=== PATIENT | female | born 1975 | race American Indian/Alaskan Native ===

== ENCOUNTER 2017-01-20 09:24 | Emergency (ER) | payer SELFPAY ==
--- NOTE | 2017-01-20 14:28 | Emergency Department Report ---
ED Extremity Problem HPI - General Chief complaint: Extremity Injury, Lower Stated complaint: RT ANKLE/FOOT SWELLING Time Seen by Provider: 01/20/17 13:43 Source: patient, family Mode of arrival: Ambulatory Limitations: No Limitations - History of Present Illness Initial comments: Patient here brought in by [id number] reported that she was recently return to work on 12/23/2016 status post right ankle fracture from 2015. She says she's been going to orthopedic doctor in the cab and also doing physical therapy. She says she had to wear a boot for 5 weeks. She is complaining of pain to her right ankle radiating up to her right lower leg. She is also complaining that she is on control and her right leg seemed to be more swollen down her left leg.. She said her orthopedic doctor put her on prednisone for a day and stop working. She says she was placed on meloxicam but she still having pain. She says she works for [employer] and the report that she is slow and she cannot performed due to chronic ankle pain. She said her primary care doctor referred her to resuscitation where she will have an appointment on February 03. Also reported that she has an appointment with her orthopedic doctor on January 27, 2017. She said her orthopedic doctor has not ordered an MRI and she thinks she needs MRI done. She said her pain is 10 out of 10 and describes it is aching to her right ankle. MD Complaint: extremity pain, joint swelling, joint paint -: month(s) Location: right, knee History of Same: Yes -: No myalgia, Yes arthralgia, No fever, No associated dyspnea, No associated chest pain Radiation: proximal Severity scale (0 -10): 10 Quality: aching Consistency: intermittent Improves with: immobilization, rest Worsens with: weight bearing, walking Associated Symptoms: arthralgias. denies: chest pain, shortness of breath, fever, myalgias, rash - Related Data Previous Rx's Medication Instructions Recorded Last Taken Type HYDROcodone/APAP 5-325 [[place] 1 each PO Q6HR PRN #16 tablet 01/20/17 Unknown Rx 5/325] Allergies Allergy/AdvReac Type Severity Reaction Status Date / Time aspirin AdvReac NOSEBLEED Verified 01/20/17 10:38 ibuprofen AdvReac STOMACH Verified 01/20/17 10:38 IRRITATION ED Review of Systems ROS: Stated complaint: RT ANKLE/FOOT SWELLING Other details as noted in HPI Comment: All other systems reviewed and negative Constitutional: denies: chills, fever Respiratory: no symptoms reported Cardiovascular: denies: chest pain, palpitations, edema, syncope Gastrointestinal: denies: abdominal pain, nausea, vomiting Musculoskeletal: arthralgia. denies: back pain, myalgia Skin: denies: rash Neurological: abnormal gait (due to chronic right ankle pain). denies: headache , numbness, paresthesias, confusion, vertigo ED Past Medical Hx - Past Medical History Previous Medical History?: Yes Hx GERD: Yes Additional medical history: CHRONIC BACK PAIN. DEVIATED SEPTUM - Surgical History Past Surgical History?: Yes Hx Cholecystectomy: Yes Additional Surgical History: CYST REMOVED LEFT SHOULDER - Family History Family history: hypertension - Social History Smoking Status: Current Every Day Smoker Substance Use Type: Alcohol, Prescribed - Medications Home Medications: Home Medications Medication Instructions Recorded Confirmed Last Taken Type HYDROcodone/APAP 5-325 [[place] 1 each PO Q6HR PRN #16 tablet 01/20/17 Unknown Rx 5/325] ED Physical Exam - General Limitations: No Limitations General appearance: alert, in no apparent distress - Head Head exam: Present: atraumatic, normocephalic, normal inspection - Eye Eye exam: Present: normal appearance, PERRL, EOMI Pupils: Present: normal accommodation - Neck Neck exam: Present: normal inspection, full ROM. Absent: tenderness, meningismus, lymphadenopathy - Respiratory Respiratory exam: Present: normal lung sounds bilaterally. Absent: respiratory distress, chest wall tenderness - Cardiovascular Cardiovascular Exam: Present: regular rate, normal rhythm, normal heart sounds - GI/Abdominal GI/Abdominal exam: Present: soft, normal bowel sounds. Absent: distended, tenderness, guarding, rebound, rigid - Extremities Exam Extremities exam: Present: normal inspection, full ROM, normal capillary refill. Absent: tenderness, pedal edema, calf tenderness - Expanded Lower Extremity Exam Right Hip exam: Present: normal inspection, full ROM, pelvic stability. Absent: tenderness, swelling, abrasion, laceration, ecchymosis, deformity, crepidus, dislocation, erythema, external rotation, internal rotation, shortening Upper Leg exam: Present: normal inspection, full ROM. Absent: tenderness, swelling, abrasion, laceration, ecchymosis, deformity, crepidus, dislocation, erythema Knee exam: Present: normal inspection, full ROM, full knee extension. Absent: tenderness, swelling, abrasion, laceration, ecchymosis, deformity, crepidus, dislocation, erythema, effusion, pain w/ pronation/supination, posterior draw sign, pain/laxity with valgus, pain/laxity with varus Lower Leg exam: Present: tenderness (tender to palpate bilateral mid leg. No erythema or tenderness to calf.), swelling. Absent: full ROM (noted patient will to right lower extremity.), laceration, ecchymosis, deformity, crepidus, dislocation, erythema, palpable cord, Bala's sign Ankle exam: Present: normal inspection. Absent: full ROM (pain with dorsiflexion to her right ankle), tenderness, swelling, abrasion, laceration, ecchymosis, deformity, crepidus, dislocation, erythema Foot/Toe exam: Present: normal inspection, full ROM. Absent: tenderness, swelling, abrasion, laceration, ecchymosis, deformity, crepidus, dislocation, erythema, amputation, puncture wound, foreign body, calcaneal tenderness, tenderness at base of 5th metatarsal, nail avulsion, subungual hematoma Neuro vascular tendon exam: Present: no vascular compromise, significant pain with passive ROM of distal joint. Absent: pulse deficit, abnormal cap refill, motor deficit, sensory deficit, tendon deficit, extremity cold to touch, pallor , abnormal 2-point discrimination, decreased fine/light touch, foot drop, peroneal nerve deficit Gait: Positive: observed and limited by pain - Back Exam Back exam: Present: normal inspection, full ROM - Neurological Exam Neurological exam: Present: alert, oriented X3, reflexes normal. Absent: abnormal gait (she is limping to right lower extremity due to ankle pain), motor sensory deficit - Psychiatric Psychiatric exam: Present: normal affect, normal mood - Skin Skin exam: Present: warm, dry, intact, normal color. Absent: rash ED Course Vital Signs 01/20/17 01/20/17 01/20/17 10:32 13:40 16:06 Temperature 98.8 F 98.7 F Pulse Rate 82 82 62 Respiratory 19 18 14 Rate Blood Pressure 138/94 Blood Pressure 152/120 129/84 [Left] O2 Sat by Pulse 98 99 100 Oximetry - Reevaluation(s) Reevaluation #1: 01/20/17 15:47 Patient given [place] 5/325 mg 2 tablets in emergency room for right ankle pain. ED Medical Decision Making - Radiology Data Radiology results: report reviewed Venous Doppler of right lower extremity reveals no evidence of DVT or SVT). - Medical Decision Making ED course: Discussed with patient that she will need to follow-up with orthopedic doctor regarding her chronic pain. I also discussed with her that her ultrasound revealed that she has no blood clots. I also discussed with her that her radiating pain could be from nerve injury and she will need to follow- up with orthopedic doctor and possibly get an MRI done. Told her to keep her appointment with her orthopedic doctor and if she is not satisfied then she should follow up with [facility]. She was given [place] 5/325 mg 2 tablets by mouth in emergency room for pain which relieved her pain. Discharged home with L[place] 5/325 2 tablets and to follow-up with orthopedic doctor. Critical care attestation.: If time is entered above; I have spent that time in minutes in the direct care of this critically ill patient, excluding procedure time. ED Disposition Clinical Impression: Arthralgia of ankle, right Disposition: DISCHARGED TO HOME OR SELFCARE Is pt being admited?: No Does the pt Need Aspirin: No Condition: Stable Instructions: Arthralgia (ED), Ankle Exercises (GEN) Prescriptions: HYDROcodone/APAP 5-325 [[place] 5/325] 1 each PO Q6HR PRN #16 tablet PRN Reason: Pain Referrals: PRIMARY CARE, [Primary Care Provider] - 2-3 Days Your, Orthopedic Doctor [Other] - 3-5 Days Forms: Accompanied Note, Work/School Release Form(ED)
[2017-01-20] MEDS ORDERED: NORCO 5/325 PO ONE (14:32)
[2017-01-20 16:07] VITALS: BP 129/84
== END 2017-01-20 16:07 | disposition home or self-care (01) ==
LOC: ED 09:24
DX: M25.571 Pain in right ankle and joints of right foot (principal); K21.9 Gastro-esophageal reflux disease without esophagitis; G89.29 Other chronic pain; F17.200 Nicotine dependence, unspecified, uncomplicated; Z90.49 Acquired absence of other specified parts of digestive tract

== ENCOUNTER 2017-04-19 08:25 | Emergency (ER) | payer BC, MEDICARE | END 2017-04-19 08:26 | disposition left against medical advice (07) | LOC: ED 08:25 | DX: Z76.0 Encounter for issue of repeat prescription (principal); Z53.21 Procedure and treatment not carried out due to patient leaving prior to being seen by health care provider ==

== ENCOUNTER 2018-12-24 13:59 | Emergency (ER) | payer OTHER, MEDICARE ==
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
[2018-12-24] MEDS ORDERED: NORCO 5/325 PO ONE (16:15)
--- NOTE | 2018-12-24 17:49 | XRay Report ---
PROCEDURE: XR SPINE LUMBOSACRAL 2-3V TECHNIQUE: Frontal and lateral views lumbar spine HISTORY: low back pain COMPARISONS: None FINDINGS: There is mild dextrocurvature of the lumbar spine. There is mild grade 1 anterolisthesis of L5 on S1. The vertebral heights are maintained. There appears to be slight loss of the L5-S1 discs. There is degenerative facet change at the L4-L5 and L5-S1 levels. The paraspinous soft tissues are unremarkable. IMPRESSION: 1. Spondylitic change lower lumbar spine with grade 1 anterolisthesis L5 on S1. If there is no clinical contraindication, MRI may be helpful for further evaluation. This document is electronically signed by Melissa Vergara MD., December 24 2018 05:47:49 PM ET
[2018-12-24] MEDS ORDERED: MORPHINE IM ONE (20:03)
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
--- NOTE | 2018-12-24 20:11 | XRay Report ---
PROCEDURE: Right ankle. TECHNIQUE: 3 views. HISTORY: Ankle pain and swelling. COMPARISONS: None. FINDINGS: The bones appear intact without fracture or dislocation. The joint spaces appear normal. The soft tis sues are unremarkable. IMPRESSION: Normal study. This document is electronically signed by Bruno Lantigua MD., December 24 2018 08:09:26 PM ET
[2018-12-24 20:48] VITALS: BP 122/75
== END 2018-12-24 20:53 | disposition home or self-care (01) ==
LOC: ED 13:59
DX: S96.911A Strain of unspecified muscle and tendon at ankle and foot level, right foot, initial encounter (principal); S39.012A Strain of muscle, fascia and tendon of lower back, initial encounter; K21.9 Gastro-esophageal reflux disease without esophagitis; V49.49XA Driver injured in collision with other motor vehicles in traffic accident, initial encounter; Y93.89 Activity, other specified; Y92.89 Other specified places as the place of occurrence of the external cause; Y99.8 Other external cause status
CPT/HCPCS: 72100; 73610; 96372; 99284; J2270

== ENCOUNTER 2019-01-05 12:16 | Emergency (ER) | payer MEDICARE, OTHER ==
--- NOTE | 2019-01-05 12:28 | Emergency Department Report ---
Blank Doc - Documentation Documentation: This is a 43-year-old female that presents with lip twitching sensation after taking Nystatin and Tizanidine. This initial assessment/diagnostic orders/clinical plan/treatment(s) is/are subject to change based on patient's health status, clinical progression and re- assessment by fellow clinical providers in the ED. Further treatment and workup at subsequent clinical providers discretion. Patient/guardians urged not to elope from the ED as their condition may be serious if not clinically assessed and managed. Initial orders include: 1- Patient sent to [facility] for further evaluation and treatment
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
== END 2019-01-05 14:30 | disposition home or self-care (01) ==
LOC: ED 12:16
CPT/HCPCS: 99282